=== PATIENT | female | born 1985 | race Caucasian/White ===

== ENCOUNTER → 2019-06-26 | Outpatient (CLI) | payer OTHER ==
[2019-06-28 14:07] LABS: HPV 16 Negative (Negative); HPV 18 Negative (Negative); HPV OTHER HR TYPES Negative (Negative)
[2019-06-29 00:06] LABS: CHLAMYDIA TRACHOMATIS, NAA Negative (Negative); NEISSERIA GONORRHOEAE, NAA Negative (Negative)
== END | disposition home or self-care (01) ==
LOC: LAB SHORT 16:37 → LAB 16:37
PROVIDERS: Obstetrics & Gynecology
DX: Z34.81 Encounter for supervision of other normal pregnancy, first trimester (principal)
CPT/HCPCS: 87491; 87591; 87624; G0123

== ENCOUNTER → 2020-09-16 | Outpatient (CLI) | payer OTHER ==
[2020-09-18 01:08] LABS: CHLAMYDIA TRACHOMATIS, NAA Negative (Negative); NEISSERIA GONORRHOEAE, NAA Negative (Negative)
== END ==
LOC: LAB 16:56 → LAB SHORT 16:56
PROVIDERS: Advanced Practice Midwife
DX: Z30.09 Encounter for other general counseling and advice on contraception (principal)
CPT/HCPCS: 87491; 87591

== ENCOUNTER 2021-05-13 21:58 | Observation (INO) | payer OTHER ==
[~2021-05-13] VITALS: Ht 154.9 cm; Wt 81.7 kg
[2021-05-13 22:20] LABS: BASOPHILS ABSOLUTE AUTO 0.04 K/mm3 (0.00-0.23); BASOPHILS PERCENT AUTO 0 % (0-2); EOSINOPHILS PERCENT AUTO 0 % (0-6); Hematocrit 41.3 % (33.0-51.0); Hemoglobin 13.4 g/dL (11.5-16.0); IMMATURE GRAN ABSOLUTE AUTO 0.08 K/mm3 (0.00-0.10); IMMATURE GRAN PERCENT AUTO 0 % (0-1); LYMPHOCYTES ABSOLUTE AUTO 1.23 K/mm3 (0.84-5.20); LYMPHOCYTES PERCENT AUTO 6 % (21-46); MONOCYTES ABSOLUTE AUTO 0.52 K/mm3 (0.16-1.47); MONOCYTES PERCENT AUTO 3 % (4-13); Mean Corpuscular HGB 29.1 pg (26.0-34.0); Mean Corpuscular HGB Conc 32.4 g/dL (31.5-36.5); Mean Corpuscular Volume 90 fL (80-100); Mean Platelet Volume 12.1 fL (9.1-12.4); NEUTROPHILS PERCENT AUTO 91 % (41-73); Platelet Count 255 K/mm3 (150-400); RDW Coefficient Variation 12.8 % (11.7-14.2); RDW Standard Deviation 41.9 fL (35.1-46.3); White Blood Cell Count 20.07 K/mm3 (4.00-11.30)
[2021-05-13 22:38] LABS: Alanine Aminotransfer (ALT/SGP 22 U/L (12-78); Albumin, Blood 4.1 g/dL (3.4-5.0); Albumin/Globulin Ratio 1.1 (0.8-1.8); Alk Phos 49 U/L (50-136); Anion Gap 5 mmol/L (6-16); Aspartate Aminotrans (AST/SGOT 16 U/L (12-37); Bilirubin, Total 0.5 mg/dL (0.1-1.0); Blood Urea Nitrogen 10 mg/dL (8-24); Bun/Creatinine Ratio 14.9 (12.0-20.0); CO2, Blood 26 mmol/L (21-32); Calcium, Blood 9.1 mg/dL (8.5-10.1); Chloride, Blood 105 mmol/L (98-108); Creatinine, Blood 0.67 mg/dL (0.40-1.00); Globulin, Blood 3.7 g/dL (2.2-4.0); Glomerular Filtration Rate >60 (60-); Glucose, Blood 136 mg/dL (70-99); Potassium, Blood 3.8 mmol/L (3.5-5.5); Sodium, Blood 136 mmol/L (136-145); Total Protein, Blood 7.8 g/dL (6.4-8.2)
[2021-05-13 23:31] LABS: Source, Urine Clean Catch
[2021-05-13 23:33] LABS: Bilirubin, Urine Neg (Neg); Blood, Urine Neg (Neg); Glucose Qualitative, Urine Neg (Neg); Ketones, Urine 4+ (Neg); Leukocyte Esterase, Urine Neg (Neg); Nitrite, Urine Neg (Neg); Protein, Urine 1+ (Neg); Urobilinogen, Urine NORM (Normal)
[2021-05-13 23:35] LABS: Appearance, Urine Clear (Clear); Color, Urine Yellow (P-Yellow)
--- NOTE | 2021-05-14 04:45 | NUR ---
SHIFT SUMMARY: PT ADMITTED FROM ER FOR APPENDICITIS AT 0210. PAIN TOLERABLE AT TIME OF ARRIVAL. PT RECENTLY MEDICATED WITH 50MCG OF FENTANYL PER EMAR. PT REPORTS OCCASIONAL NAUSEA, NO EMESIS. VOIDING A SMALL AMOUNT EACH TIME. PT REPORTS MILD BURNING WITH URINATION. IVF INFUSING. PT HAS BEEN NPO SINCE MIDNIGHT FOR POSSIBLE SURGERY TODAY. AWAITING SURGICAL CONSULT WITH DR. BOLIVAR.
--- NOTE | 2021-05-14 07:51 | NUR ---
ROUNDED ON PT
--- NOTE | 2021-05-14 08:32 | NUR ---
rounded on pt. PREPARING TO GO TO PRE OP. PROVIDED GOWN AND CUP FOR JEWELRY.
[2021-05-14 08:41] LABS: SARS-Cov-2 (COVID-19) PCR, MMC NEGATIVE (NEGATIVE)
--- NOTE | 2021-05-14 10:34 | NUR ---
05/14/21 1034 Anna Saucedo SCHEDULED ABX ZOSYN 3.375 GM AT 0533 05/14/21 NEXT DOSE DUE AT 8424
--- NOTE | 2021-05-14 11:10 | NUR ---
PT ARRIVED BACK TO UNIT FROM PACU STOOD AND TRANSFERRED TO BED FROM [facility] W/MINIMAL ASSISTANCE. RATES PAIN AT 3/10 AT THIS TIME. STERI STRIPS X3 TO ABD CDI. VSS. CALL LIGHT IN REACH.
--- NOTE | 2021-05-14 17:19 | NUR ---
SUMMARY NO ACUTE CHANGES SINCE RETURNING TO FLOOR FROM PACU. PT POD 0 FOR LAP APPY. STERI STRIPS TO ABD X3 CDI. PT AMBULATING TO RESTROOM AND TOLERATING PO INTAKE. MEDICATED PER ORDERS FOR PAIN. CALL LIGHT IN REACH.
--- NOTE | 2021-05-14 20:52 | NUR ---
PT LYING IN BED, NO DISTRESS. PT REP PAIN DANETTE AT THIS TIME, DENIES N/V, ICE CHIPS AND POPCICLE PROVIDED PER PT REQ.
--- NOTE | 2021-05-14 22:29 | NUR ---
PT UP TO BATHROOM, MEDICATED FOR PAIN PER EMAR. WILL MONITOR FOR RELIEF.
--- NOTE | 2021-05-15 00:53 | NUR ---
PT LYING IN BED, APPEARS TO BE SLEEPING, RESP E/U.
--- NOTE | 2021-05-15 05:46 | NUR ---
POD 1 S/P LAP APPY. PT VSS T/O NIGHT, INCISIONS CDI. PAIN MGD W/1 PERCOCET AND TORADOL W/REP RELIEF. PT DANETTE PO, DENIED N/V, REP NO FLATUS YET, IS VOIDING URINE W/O DIFFICULTY. PT UP INDEP IN ROOM, DANETTE WELL. IVF AND ABX CONT PER ORDERS.
[2021-05-15] MEDS ORDERED: AMOCLA875 PO (10:03)
[2021-05-15] MEDS ORDERED: OXYC5 PO (10:03)
--- NOTE | 2021-05-15 10:26 | NUR ---
discharging PT DRESSED. DC'D IV, CATHETER INTACT. REVIEWED DC INSTRUCTIONS W/PT; VERBALIZED UNDERSTANDING. CALL AUGMENTIN PRESCRIPTION IN TO [facility] PER PT REQUEST. PT SIGNED DC PAPERWORK. CALLING SPOUSE FOR RIDE.
--- NOTE | 2021-05-15 10:38 | NUR ---
DISCHARGED PT LEFT UNIT IN WC W/POSSESSIONS AND DC PAPERWORK IN HAND TO RIDE WAITING OUTSIDE.
== END 2021-05-15 10:47 | disposition home or self-care (01) ==
LOC: ER 21:58 → SURS 21:59 → ER 05-14 01:01 → SURS 05-14 02:05
PROVIDERS: Physician Assistant; Surgery; ADMIT Surgery
PROC: 0DTJ4ZZ Resection of Appendix, Percutaneous Endoscopic Approach (ICD-10-PCS; principal; 2021-05-14 08:30)
DX: K35.31 Acute appendicitis with localized peritonitis and gangrene, without perforation (principal); Z88.5 Allergy status to narcotic agent; Z20.822 Contact with and (suspected) exposure to COVID-19
CPT/HCPCS: 74176; 80053; 81025; 83690; 85025; 88304; 96365-59; 96366-59; 96375; 96375-59; 96376; 99285-25; A9270; G0378; J1100; J1885; J2250; J2405; J2543; J2704; J3010; J7030; J7120; U0004

== ENCOUNTER → 2021-06-01 | Outpatient (CLI) | payer OTHER ==
[~2021-06-01] MED LIST: AMOCLA875 PO; OXYC5 PO
== END | disposition home or self-care (01) ==
LOC: LAB SHORT 16:40 → LAB 16:40
DX: L08.9 Local infection of the skin and subcutaneous tissue, unspecified (principal)
CPT/HCPCS: 87070; 87077; 87147; 87186; 87205

== ENCOUNTER → 2021-11-20 | Outpatient (CLI) | payer OTHER ==
[2021-11-24 14:07] LABS: HPV 16 Negative (Negative); HPV 18 Negative (Negative); HPV OTHER HR TYPES Negative (Negative)
== END | disposition home or self-care (01) ==
LOC: LAB SHORT 18:47
PROVIDERS: Obstetrics & Gynecology
DX: Z01.419 Encounter for gynecological examination (general) (routine) without abnormal findings (principal)
CPT/HCPCS: 87624; G0123